=== PATIENT | female | born 1980 | race Caucasian/White ===

== ENCOUNTER → 2017-03-27 | Emergency (ER) | payer MEDICARE | END | disposition left against medical advice (07) | LOC: EDUNIT# 15:20 → ER 15:23 | DX: R42 Dizziness and giddiness (principal); Z53.21 Procedure and treatment not carried out due to patient leaving prior to being seen by health care provider ==

== ENCOUNTER 2018-06-13 17:59 | Emergency (ER) | payer MEDICARE ==
[~2018-06-13] VITALS: Ht 165.1 cm; Wt 76.2 kg
[2018-06-13] MEDS ORDERED: HYDROcodone/APAP 5 MG/325 MG (LORTAB) TAB PO ONE (18:45)
[2018-06-13] MEDS ORDERED: fentaNYL INJECTION 100 MCG/2 ML AMP IVP ONE (18:45)
[2018-06-13] MEDS ORDERED: HYDR-757 PO (18:52)
--- NOTE | 2018-06-13 18:52 | ED Lower Extremity ---
General Chief Complaint: Lower Extremity Stated Complaint: R KNEE PAIN/SWELLING Nursing Triage Note: pT STATES SHE HAS BEEN HAVING DIFFICULTY WITH r LEG FOR THE PAST 6-8 MONTHS. PT STATES KNEE MAKES A GRINDING SOUND. PT STATES SHE COULD NOT EVEN MOVE WHEN SHE WOKE UP THIS AM. PT HAS BEEN ON MILXICAM FOR 3 WEEKS. Nursing Sepsis Screen: No Definite Risk Source: patient Exam Limitations: no limitations History of Present Illness Date Seen by Provider: Jun 13, 2018 Time Seen by Provider: 18:48 Initial Comments To ER per EMS with right knee pain. She has had this problem ongoing for several months. 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 She denies fevers or chills. She denies any recent recurrent injury. She states that her knees have always "grinding". She does not recall any particular injury that caused this. Today, she is unable to fully flex or extend the knee. Onset: other Severity: moderate Pain/Injury Location: right knee Allergies and Home Medications Allergies Uncoded Allergies: STEROIDS (Allergy, Unknown, 09/10/17) Home Medications Hydrocodone/Acetaminophen 1 Each Tablet, 1 EACH PO Q6H PRN for PAIN-MODERATE TO SEVERE Prescribed by: JAMES DIAZ on 06/13/18 1653 Patient Home Medication List Home Medication List Reviewed: Yes Constitutional: see HPI EENTM: see HPI Respiratory: no symptoms reported Cardiovascular: no symptoms reported Genitourinary: no symptoms reported Musculoskeletal: see HPI Skin: no symptoms reported Psychiatric/Neurological: No Symptoms Reported Past Knugqng-Msozxt-Kmnsxl Hx Patient Social History Recent Foreign Travel: No Contact w/Someone Who Travel: No Recent Infectious Disease Expo: No Physical Exam Vital Signs Vital Signs - First Documented 06/13/18 18:39 Temp 96.9 Pulse 80 Resp 14 B/P (MAP) 108/60 (76) Pulse Ox 98 O2 Delivery Room Air Capillary Refill : Less Than 3 Seconds Height, Weight, BMI Height: 5'5.00" Weight: 168lbs. oz. 76.102933gi; BMI Method:Stated General Appearance: WD/WN, no apparent distress HEENT: PERRL/EOMI, normal ENT inspection Neck: non-tender, full range of motion Respiratory: no respiratory distress, no accessory muscle use Gastrointestinal: normal bowel sounds, non tender Hips: bilateral hip non-tender, bilateral hip normal inspection Legs: bilateral leg non-tender, bilateral leg normal inspection Knees: right knee pain, right knee soft tissue tenderness, right knee other ( questionable small joint effusion. No erythema. No obvious deformity.) Ankles: bilateral ankle non-tender, bilateral ankle normal inspection, bilateral ankle normal range of motion Neurologic/Psychiatric: alert, normal mood/affect, oriented x 3 Skin: normal color, warm/dry Progress/Results/Core Measures Results/Orders My Orders Orders - JAMES DIAZ APRN Fentanyl Injection (Sublimaze Injection (06/13/18 18:45) Hydrocodone/Apap 5/325 Tablet (Lortab 5 (06/13/18 18:45) Knee, Right, 3 Views (06/13/18 18:44) Medications Given in ED Current Medications Medications Dose Ordered Sig/Shirley Route Start Time Stop Time Status Last Admin Dose Admin Acetaminophen/ Hydrocodone Bitart 1 tab ONCE ONCE PO 06/13/18 18:45 06/13/18 18:46 DC 06/13/18 19:13 1 TAB Vital Signs/I&O 06/13/18 18:39 Temp 96.9 Pulse 80 Resp 14 B/P (MAP) 108/60 (76) Pulse Ox 98 O2 Delivery Room Air Blood Pressure Mean: 76 Departure Communication (Admissions) NAME: NICOLE PENNINGTON [facility] REC#: [id number] PT STATUS: REG ER : 1980 PHYSICIAN: JAMES DIAZ APRN ADMIT DATE: 06/13/18/ER Draft Date of Exam:06/13/18 KNEE, RIGHT, 3 VIEWS EXAMINATION: Right knee series. INDICATION: Knee pain. No comparison available. FINDINGS: There is some minimal early osteoarthritic joint space loss and osteophyte formation within the medial compartment of the right knee. There also appear to be some very small early inferior patellar osteophytes. There is no acute fracture or suspicion bone lesion. There is no significant knee joint effusion evident. There is no evidence of an acute fracture. IMPRESSION: 1. There appear to be some early mild osteoarthritic changes within the medial and patellofemoral compartments of the right knee. There is no acute fracture, malalignment, significant joint effusion, or suspicious bone lesion. Dictated on workstation # [id number] Dict: 06/13/181922 Trans: 06/13/181928 [id number] Interpreted by: ALBERTO GAONA MD Electronically signed by: Impression Primary Impression: Osteoarthritis of knee Disposition: HOME, SELF-CARE Condition: Stable Departure-Patient Inst. Decision time for Depature: 18:50 Referrals: [facility]/BRENDA (PCP) Primary Care Physician AMBER ESPINOSA (Family) Primary Care Physician Patient Instructions: Arthritis and Exercise Add. Discharge Instructions: 1. Follow-up with orthopedic surgeon of your choosing. The next step will likely be an MRI of the knee. All discharge instructions reviewed with patient and/or family. Voiced understanding. Scripts Hydrocodone/Acetaminophen (Independence 5-325 Tablet) 1 Each Tablet 1 EACH PO Q6H PRN for PAIN-MODERATE TO SEVERE, #10 TAB Prov: JAMES DIAZ APRN 06/13/18 Work/School Note: Work Release Form Date Seen in the Emergency Department: Jun 13, 2018 Return to Work: Jun 15, 2018 JAMES DIAZ APRN Jun 13, 2018 18:52
--- NOTE | 2018-06-13 19:29 | Diagnostic Imaging Report ---
EXAMINATION: Right knee series. INDICATION: Knee pain. No comparison available. FINDINGS: There is some minimal early osteoarthritic joint space loss and osteophyte formation within the medial compartment of the right knee. There also appear to be some very small early inferior patellar osteophytes. There is no acute fracture or suspicion bone lesion. There is no significant knee joint effusion evident. There is no evidence of an acute fracture. IMPRESSION: 1. There appear to be some early mild osteoarthritic changes within the medial and patellofemoral compartments of the right knee. There is no acute fracture, malalignment, significant joint effusion, or suspicious bone lesion. Dictated by: Dictated on workstation # [id number]
[2018-06-13 20:07] VITALS: BP 119/82
== END 2018-06-13 20:07 | disposition home or self-care (01) ==
LOC: EDUNIT# 17:59 → ER 18:01
DX: M17.11 Unilateral primary osteoarthritis, right knee (principal); Z88.8 Allergy status to other drugs, medicaments and biological substances
CPT/HCPCS: 73562

== ENCOUNTER → 2018-06-22 | Outpatient (CLI) | payer MEDICARE, MEDICAID ==
[~2018-06-22] MED LIST: HYDR-757 PO
--- NOTE | 2018-06-22 08:28 | Diagnostic Imaging Report ---
PROCEDURE: MRI right joint lower extremity without contrast. TECHNIQUE: Multiplanar, multisequence non contrast-enhanced MRI of the right lower extremity was accomplished. INDICATION: Right knee pain for one month with no known injury. COMPARISON: Radiographs from 06/13/2018 FINDINGS: No acute fracture or dislocation is seen in the right knee. Alignment appears normal. There is no significant joint effusion. There is heterogeneity and surface irregularity of the patellofemoral articular cartilage, with a high-grade partial thickness defect of the articular cartilage overlying the median ridge and medial facet, measuring 1 cm transverse. The articular cartilage in the medial and lateral compartments demonstrates no large full-thickness defects. There appears to be an oblique tear extending to the inferior articular surface of the junction of the posterior horn and body of the medial meniscus (image 6 series 6). No discrete tear seen of the lateral meniscus, although there is mildly increased signal. The anterior and posterior cruciate ligaments are intact. The medial collateral ligament and the lateral collateral ligamentous complex are intact. The extensor mechanism is intact. The medial and lateral retinacula appear normal. Soft tissues surrounding the right knee demonstrate a small Noel's cyst with no other fluid collections or masses. IMPRESSION: 1. Oblique tear at the junction of the posterior horn and body of the right medial meniscus. 2. High-grade partial-thickness defect of the articular cartilage of the patella. 3. Small Noel's cyst. Dictated by: Dictated on workstation # [id number]
== END ==
LOC: RAD 06:56
PROVIDERS: ATTEND Nurse Practitioner
DX: S83.281A Other tear of lateral meniscus, current injury, right knee, initial encounter (principal); M22.8X1 Other disorders of patella, right knee; M71.21 Synovial cyst of popliteal space [Baker], right knee
CPT/HCPCS: 73721

== ENCOUNTER 2018-12-09 20:49 | Emergency (ER) | payer MEDICAID, MEDICARE ==
[~2018-12-09] VITALS: Ht 165.1 cm; Wt 77.1 kg
[~2018-12-09 20:49] MED LIST changes: +HYDR-4226 PO; -HYDR-757 PO
[2018-12-09 21:02] LABS: BASOPHILS % (AUTO) 0 % (0-10); EOSINOPHILS # (AUTO) 0.6 10^3/uL (0.0-0.3); EOSINOPHILS % (AUTO) 4 % (0-10); HEMATOCRIT 41 % (35-52); HEMOGLOBIN 14.1 G/DL (11.5-16.0); LYMPHOCYTES # (AUTO) 4.3 X 10^3 (1.0-4.0); LYMPHOCYTES % (AUTO) 26 % (12-44); MEAN CORPUSCULAR HEMOGLOBIN 31 PG (25-34); MEAN CORPUSCULAR HGB CONC 35 G/DL (32-36); MEAN CORPUSCULAR VOLUME 89 FL (80-99); MEAN PLATELET VOLUME 9.5 FL (7.4-10.4); MONOCYTES # (AUTO) 1.1 X 10^3 (0.0-1.0); MONOCYTES % (AUTO) 7 % (0-12); NEUTROPHILS # (AUTO) 10.5 X 10^3 (1.8-7.8); NEUTROPHILS % (AUTO) 64 % (42-75); PLATELET COUNT 289 10^3/uL (130-400); RED CELL DISTRIBUTION WIDTH 13.2 % (10.0-14.5); WHITE BLOOD COUNT 16.5 10^3/uL (4.3-11.0)
[2018-12-09 21:20] LABS: ALANINE AMINOTRANSFERASE 25 U/L (0-55); ALBUMIN 4.4 GM/DL (3.2-4.5); ALKALINE PHOSPHATASE 64 U/L (40-136); AMYLASE 68 U/L (25-125); BILIRUBIN,TOTAL 0.3 MG/DL (0.1-1.0); BUN/CREATININE RATIO 9; CALCIUM 9.5 MG/DL (8.5-10.1); CARBON DIOXIDE 24 MMOL/L (21-32); CHLORIDE 103 MMOL/L (98-107); CREATININE SERUM 1.36 MG/DL (0.60-1.30); GFR ESTIMATED 44; GLUCOSE 97 MG/DL (70-105); LIPASE 36 U/L (8-78); MAGNESIUM 2.2 MG/DL (1.8-2.4); POTASSIUM 3.7 MMOL/L (3.6-5.0); SODIUM 138 MMOL/L (135-145)
[2018-12-09 21:21] LABS: BAND NEUTROPHILS 0 %; BASOPHILS % (MANUAL) 0 %; EOSINOPHILS % (MANUAL) 3 %; LYMPHOCYTES % (MANUAL) 43 %; MONOCYTES % (MANUAL) 4 %; NEUTROPHILS % (MANUAL) 50 %; RBC MORPH NORMAL
[2018-12-09 21:28] LABS: MYOGLOBIN SERUM 31.3 NG/ML (10.0-92.0)
--- NOTE | 2018-12-09 21:52 | Diagnostic Imaging Report ---
INDICATION: Chest pain EXAMINATION: Chest 12/09/2018 COMPARISON: None FINDINGS: The cardiomediastinal silhouette is unremarkable. The pulmonary vasculature is within normal limits. The lungs and pleural spaces are clear. IMPRESSION: No evidence of an acute cardiopulmonary process. Dictated by: Dictated on workstation # [id number]
--- NOTE | 2018-12-09 22:09 | ED Chest Pain ---
General Chief Complaint: Chest Pain Stated Complaint: CP Nursing Triage Note: Pt has had chest pain for about 2 days. Today the neck, jaw pain and chest pressure started around [id number]. She stated the pain radiates to left arm/back. Pt has past medical history of anxiety, so pt took xanax and lexapro. Pt called EMS and EMS brought pt in. They attempted IV and could not get one. EMS gave pt aspirin. Pt was alert and oriented at arrival. Pt stated at arrival , pt was not in any pain. Nursing Sepsis Screen: No Definite Risk Source: patient Exam Limitations: no limitations History of Present Illness Date Seen by Provider: Dec 09, 2018 Time Seen by Provider: 20:53 Initial Comments 38-year-old female who is brought into the emergency room by [facility] for chest pain for 2 days. She reports of the chest pain has been starting in her chest and radiating to her left side of her neck, left jaw and shooting down her left arm. She is alert and oriented on arrival to the emergency room. She denies shortness of breath, nausea, vomiting, lightheadedness, diarrhea. She does have an extensive history of anxiety and did take those medications without improvement. EMS gave 324 mg of chewable aspirin. She is denying chest pain on arrival to the emergency room. Timing/Duration: gone now, 2-3 days Severity/Quality: mild, dull, pressure Radiation: neck ASA po FLIGHT TOWER DISPATCHER: Yes NTG SL FLIGHT TOWER DISPATCHER: No Associated Symptoms: denies symptoms Allergies and Home Medications Allergies Uncoded Allergies: STEROIDS (Allergy, Unknown, 09/10/17) Home Medications Hydrocodone/Acetaminophen 1 Each Tablet, 1 EACH PO Q6H PRN for PAIN-MODERATE TO SEVERE Prescribed by: JAMES DIAZ on 06/13/18 0112 Patient Home Medication List Home Medication List Reviewed: Yes Review of Systems Review of Systems Constitutional: no symptoms reported, see HPI Cardiovascular: See HPI, Chest Pain Psychiatric/Neurological: See HPI, Anxiety All Other Systems Reviewed Negative Unless Noted: Yes Past Cyatpew-Ihlgjs-Ukhfda Hx Past Med/Social Hx: Reviewed Nursing Past Med/Soc Hx Patient Social History Alcohol Use: Denies Use Recreational Drug Use: No Smoking Status: Current Everyday Smoker Type Used: Cigarettes Recent Foreign Travel: No Contact w/Someone Who Travel: No Recent Infectious Disease Expo: No Recent Hopitalizations: No Physical Abuse: No Sexual Abuse: No Mistreated: No Fear: No Seasonal Allergies Seasonal Allergies: No Past Medical History Surgeries: Yes (rt shoulder, right knee) Section Respiratory: No Cardiac: No Neurological: Yes Neuropathy Genitourinary: No Gastrointestinal: No Musculoskeletal: No Endocrine: No HEENT: No Cancer: No Psychosocial: Yes Anxiety Integumentary: No Blood Disorders: No Adverse Reaction/Blood Tranf: No Family Medical History Reviewed Nursing Family Hx Physical Exam Vital Signs Vital Signs - First Documented Capillary Refill : Less Than 3 Seconds Height, Weight, BMI Height: 5'5.00" Weight: 170lbs. 0oz. 77.693747xv; BMI Method:Stated General Appearance: No Apparent Distress, WD/WN HEENT: PERRL/EOMI, TMs Normal, Normal ENT Inspection, Pharynx Normal Neck: Full Range of Motion, Normal Inspection, Non Tender Respiratory: Chest Non Tender, Lungs Clear, Normal Breath Sounds, No Accessory Muscle Use, No Respiratory Distress Cardiovascular: Regular Rate, Rhythm, No Edema, No Gallop, No JVD, No Murmur, Normal Peripheral Pulses Extremity: Normal Capillary Refill, Normal Inspection, Normal Range of Motion, Non Tender, No Calf Tenderness, No Pedal Edema Neurologic/Psychiatric: Alert, Oriented x3, Normal Mood/Affect Skin: Normal Color, Warm/Dry Progress/Results/Core Measures Results/Orders Lab Results Laboratory Tests Test 12/09/18 20:52 12/09/18 22:01 Range/Units White Blood Count 16.5 H 4.3-11.0 10^3/uL Red Blood Count 4.58 4.35-5.85 10^6/uL Hemoglobin 14.1 11.5-16.0 G/DL Hematocrit 41 35-52 % Mean Corpuscular Volume 89 80-99 FL Mean Corpuscular Hemoglobin 31 25-34 PG Mean Corpuscular Hemoglobin Concent 35 32-36 G/DL Red Cell Distribution Width 13.2 10.0-14.5 % Platelet Count 289 130-400 10^3/uL Mean Platelet Volume 9.5 7.4-10.4 FL Neutrophils (%) (Auto) 64 42-75 % Lymphocytes (%) (Auto) 26 12-44 % Monocytes (%) (Auto) 7 0-12 % Eosinophils (%) (Auto) 4 0-10 % Basophils (%) (Auto) 0 0-10 % Neutrophils # (Auto) 10.5 H 1.8-7.8 X 10^3 Lymphocytes # (Auto) 4.3 H 1.0-4.0 X 10^3 Monocytes # (Auto) 1.1 H 0.0-1.0 X 10^3 Eosinophils # (Auto) 0.6 H 0.0-0.3 10^3/uL Basophils # (Auto) 0.0 0.0-0.1 10^3/uL Neutrophils % (Manual) 50 % Lymphocytes % (Manual) 43 % Monocytes % (Manual) 4 % Eosinophils % (Manual) 3 % Basophils % (Manual) 0 % Band Neutrophils 0 % Blood Morphology Comment NORMAL Prothrombin Time 13.0 12.2-14.7 SEC INR Comment 1.0 0.8-1.4 Activated Partial Thromboplast Time 34 24-35 SEC D-Dimer 0.20 0.00-0.49 UG/ML Sodium Level 138 135-145 MMOL/L Potassium Level 3.7 3.6-5.0 MMOL/L Chloride Level 103 98-107 MMOL/L Carbon Dioxide Level 24 21-32 MMOL/L Anion Gap 11 5-14 MMOL/L Blood Urea Nitrogen 12 7-18 MG/DL Creatinine 1.36 H 0.60-1.30 MG/DL Estimat Glomerular Filtration Rate 44 BUN/Creatinine Ratio 9 Glucose Level 97 70-105 MG/DL Calcium Level 9.5 8.5-10.1 MG/DL Corrected Calcium 9.2 8.5-10.1 MG/DL Magnesium Level 2.2 1.8-2.4 MG/DL Total Bilirubin 0.3 0.1-1.0 MG/DL Aspartate Amino Transf (AST/SGOT) 19 5-34 U/L Alanine Aminotransferase (ALT/SGPT) 25 0-55 U/L Alkaline Phosphatase 64 40-136 U/L Myoglobin 31.3 10.0-92.0 NG/ML Troponin I < 0.028 <0.028 NG/ML Total Protein 8.0 6.4-8.2 GM/DL Albumin 4.4 3.2-4.5 GM/DL Amylase Level 68 25-125 U/L Lipase 36 8-78 U/L Urine Color YELLOW Urine Clarity CLEAR Urine pH 6 5-9 Urine Specific [place] 1.015 L 1.016-1.022 Urine Protein NEGATIVE NEGATIVE Urine Glucose (UA) NEGATIVE NEGATIVE Urine Ketones NEGATIVE NEGATIVE Urine Nitrite NEGATIVE NEGATIVE Urine Bilirubin NEGATIVE NEGATIVE Urine Urobilinogen NORMAL NORMAL MG/DL Urine Leukocyte Esterase NEGATIVE NEGATIVE Urine RBC (Auto) 1+ H NEGATIVE Urine RBC 2-5 H /HPF Urine WBC NONE /HPF Urine Squamous Epithelial Cells 5-10 /HPF Urine Crystals NONE /LPF Urine Bacteria NONE /HPF Urine Casts NONE /LPF Urine Mucus NEGATIVE /LPF Urine Culture Indicated NO My Orders Orders - CAMACHO VILLAGOMEZ Cbc With Automated Diff (12/09/18 20:53) Magnesium (12/09/18 20:53) Chest 1 View, Ap/Pa Only (12/09/18 20:53) Ekg Tracing (12/09/18 20:53) Cardiac Profile 1 (12/09/18 20:53) Comprehensive Metabolic Panel (12/09/18 20:53) Myoglobin Serum (12/09/18 20:53) Protime With Inr (12/09/18 20:53) Partial Thromboplastin Time (12/09/18 20:53) O2 (12/09/18 20:53) Monitor-Rhythm Ecg Trace Only (12/09/18 20:53) Saline Lock/Iv-Start (12/09/18 20:53) Lipase (12/09/18 20:53) Amylase (12/09/18 20:53) Fibrin Degradation Products (12/09/18 20:53) Manual Differential (12/09/18 20:52) Ua Culture If Indicated (12/09/18 22:02) Vital Signs/I&O 12/09/18 12/09/18 12/09/18 20:51 20:51 22:32 Temp 97.2 95.9 Pulse 76 70 Resp 34 18 B/P (MAP) 114/75 (88) 97/48 (64) Pulse Ox 100 97 O2 Delivery Room Air Room Air Room Air Blood Pressure Mean: 88 Progress Progress Note : Time: 20:07 Progress Note I have seen and evaluated the patient. She still remains pain-free at this time. I have reviewed her laboratory and imaging studies with her. I have also asked her to stay for a repeat troponin in 2 hours and she has declined at this time. I informed her that she will be signing out AGAINST MEDICAL ADVICE and she agrees to do this. I've informed her of plan of care, plans for discharge, return precautions were given. Initial ECG Impression Date: Dec 09, 2018 Initial ECG Impression Time: 20:51 Initial ECG Rate: 74 Initial ECG Rhythm: Normal Sinus Initial ECG Intervals: Normal Initial ECG Impression: Normal Initial ECG Comparisson: No Previous ECG Available Diagnostic Imaging Diagonstic Imaging: Xray Plain Films/CT/US/NM/MRI: chest Comments NAME: NICOLE PENNINGTON [facility] REC#: [id number] PT STATUS: REG ER : 1980 PHYSICIAN: CAMACHO VILLAGOMEZ ADMIT DATE: 12/09/18/ER Signed Date of Exam: 12/09/18 CHEST 1 VIEW, AP/PA ONLY INDICATION: Chest pain EXAMINATION: Chest 12/09/2018 COMPARISON: None FINDINGS: The cardiomediastinal silhouette is unremarkable. The pulmonary vasculature is within normal limits. The lungs and pleural spaces are clear. IMPRESSION: No evidence of an acute cardiopulmonary process. Dictated by: Dictated on workstation # [id number] Dict: 12/09/18 2148 Trans: 12/09/182225 Interpreted by: OPAL CURRIE MD Electronically signed by: OPAL CURRIE MD 12/09/182225 Reviewed: Reviewed by Me Departure Impression Primary Impression: Chest pain Additional Impressions: Left against medical advice Anxiety Disposition: 01 HOME, SELF-CARE Condition: Stable/Unchanged Departure-Patient Inst. Decision time for Depature: 22:07 Referrals: AMBER ESPINOSA (PCP/Family) Primary Care Physician Patient Instructions: Anxiety, Adult (DC), Chest Pain (DC) Add. Discharge Instructions: Resume your home medications as previously prescribed. Follow-up with your primary care provider within 1 week for recheck. Return back to the emergency room for worsening symptoms or concerns as needed. All discharge instructions reviewed with patient and/or family. Voiced understanding. CAMACHO VILLAGOMEZ Dec 09, 2018 22:09
[2018-12-09 22:12] LABS: BILIRUBIN,URINE NEGATIVE (NEGATIVE); CLARITY,URINE CLEAR; COLOR,URINE YELLOW; GLUCOSE, URINE (UA) NEGATIVE (NEGATIVE); KETONES,URINE NEGATIVE (NEGATIVE); LEUKOCYTE ESTERASE ,URINE NEGATIVE (NEGATIVE); NITRITE,URINE NEGATIVE (NEGATIVE); PH,URINE 6 (5-9); PROTEIN,URINE NEGATIVE (NEGATIVE); UROBILINOGEN,URINE NORMAL (NORMAL)
[2018-12-09 22:32] VITALS: BP 97/48
--- NOTE | 2018-12-09 22:32 | NUR ---
Pt did not want to wait on two hour troponin and wanted to go home. Pt signed AMA, received dc inst, vital signs were taken and IV removed. Pt left at this time.
== END 2018-12-09 22:31 | disposition home or self-care (01) ==
LOC: EDUNIT# 20:49 → ER 20:50
DX: R07.89 Other chest pain (principal); F41.9 Anxiety disorder, unspecified; F17.210 Nicotine dependence, cigarettes, uncomplicated; Z88.8 Allergy status to other drugs, medicaments and biological substances; Z98.890 Other specified postprocedural states
CPT/HCPCS: 36415; 71045; 80053; 81000; 82150; 83690; 83735; 83874; 84484; 85007; 85027; 85379; 85610; 85730; 93041

== ENCOUNTER 2019-03-20 12:31 | Outpatient (CLI) | payer MEDICARE ==
[~2019-03-20] VITALS: Ht 165.1 cm; Wt 83.5 kg
[2019-03-20 12:39] VITALS: BP 105/59
[2019-03-20] MEDS ORDERED: IBUP-1780 PO (12:43)
[2019-03-20] MEDS ORDERED: ALPR1TAB7 PO (12:43)
[2019-03-20] MEDS ORDERED: ESCI10TA PO (12:43)
[2019-03-20 13:06] LABS: BASOPHILS % (AUTO) 0 % (0-10); EOSINOPHILS # (AUTO) 0.4 10^3/uL (0.0-0.3); EOSINOPHILS % (AUTO) 3 % (0-10); HEMATOCRIT 37 % (35-52); HEMOGLOBIN 12.6 G/DL (11.5-16.0); LYMPHOCYTES # (AUTO) 3.5 X 10^3 (1.0-4.0); LYMPHOCYTES % (AUTO) 27 % (12-44); MEAN CORPUSCULAR HEMOGLOBIN 30 PG (25-34); MEAN CORPUSCULAR HGB CONC 34 G/DL (32-36); MEAN CORPUSCULAR VOLUME 88 FL (80-99); MEAN PLATELET VOLUME 9.9 FL (7.4-10.4); MONOCYTES # (AUTO) 0.7 X 10^3 (0.0-1.0); MONOCYTES % (AUTO) 5 % (0-12); NEUTROPHILS # (AUTO) 8.6 X 10^3 (1.8-7.8); NEUTROPHILS % (AUTO) 65 % (42-75); PLATELET COUNT 274 10^3/uL (130-400); RED CELL DISTRIBUTION WIDTH 13.4 % (10.0-14.5); WHITE BLOOD COUNT 13.2 10^3/uL (4.3-11.0)
[2019-03-20] MEDS ORDERED: ESCI20TA45 PO (13:17)
[2019-03-20] MEDS ORDERED: MEFE250C19 PO (13:17)
== END 2019-03-20 12:55 | disposition home or self-care (01) ==
LOC: PREOP 12:31
PROVIDERS: ATTEND Obstetrics & Gynecology
DX: Z01.812 Encounter for preprocedural laboratory examination (principal); Z11.2 Encounter for screening for other bacterial diseases; R10.2 Pelvic and perineal pain; Z72.0 Tobacco use
CPT/HCPCS: 36415; 85025; 86850; 86900; 86901; 87081

== ENCOUNTER 2019-03-27 10:20 | Inpatient (IN) | payer MEDICARE ==
[2019-03-27] VITALS (12 sets, daily range): BP systolic 83–110; BP diastolic 44–68
[~2019-03-27] VITALS: Ht 165.1 cm; Wt 83.5 kg
[~2019-03-27 10:20] MED LIST changes: +ALPR1TAB7 PO; +ESCI10TA PO; +ESCI20TA45 PO; +IBUP-1780 PO; +MEFE250C19 PO
[2019-03-27] MEDS ORDERED: proPOfol 200 MG/20 ML (DIPRIVAN) VIAL IV ONE (10:35)
[2019-03-27] MEDS ORDERED: SEVOFLURANE (ULTANE) 15 ML INHAL SOLN ONE ×5 (10:35→12:58)
[2019-03-27] MEDS ORDERED: fentaNYL INJECTION 100 MCG/2 ML AMP ONE (10:35)
[2019-03-27] MEDS ORDERED: ROCURONIUM 10 MG/ML 5 ML SYRINGE IV ONE (10:35)
[2019-03-27] MEDS ORDERED: LIDOCAINE PF 2% 5 ML (XYLOCAINE) VIAL ONE (10:35)
[2019-03-27] MEDS ORDERED: MIDAZOLAM 2 MG/2 ML (VERSED) VIAL ONE (10:36)
[2019-03-27] MEDS ORDERED: DEXAMETHASONE 10 MG/ML (DECADRON) 1 ML VIAL ONE (10:41)
[2019-03-27] MEDS ORDERED: ONDANSETRON 4 MG/2 ML (SDV) Z0FRAN ONE (10:41)
[2019-03-27] MEDS: LACTATED RINGERS 1,000 ML IV PRN ×2 (10:50→14:00)
[2019-03-27] MEDS ORDERED: ceFAZolin 2 GM/50 ML NS 50 ML IV ONE (11:00)
[2019-03-27] MEDS ORDERED: metroNIDAZOLE 500MG/100ML IVPB 100 ML IV ONE (11:00)
[2019-03-27] MEDS ORDERED: BUPIVACAINE 0.5% 30 ML (SENSORCAINE) VIAL ONE (11:05)
[2019-03-27] MEDS ORDERED: MIDAZOLAM 2 MG/2 ML (VERSED) VIAL IV ONE (11:30)
[2019-03-27] MEDS ORDERED: GLYCOPYRROLATE 0.2 MG/ML (ROBINUL) 2 ML VIAL ONE (13:03)
[2019-03-27] MEDS ORDERED: NEOSTIGMINE 1 MG/ML 5 ML SYRINGE ONE (13:03)
--- NOTE | 2019-03-27 13:12 | History & Physical-OB/GYN ---
History of Present Illness History of Present Illness Reason for visit/HPI Ms. Wolf was admitted for scheduled surgery, Total Abdominal Hysterectomy with Bilateral Salpingo-oophorectomy secondary to severe pelvic pain after having an Endometrial Ablation. Date of Admission March 27, 2019 at 10:20 Date Seen by a Provider: March 27, 2019 Time Seen by a Provider: 11:30 I consulted on this patient on 03/27/19 13:06 Attending Physician Ian Wong DO Admitting Physician Ian Wong DO Consult Allergies and Home Medications Allergies Uncoded Allergies: STEROIDS (Allergy, Unknown, 09/10/17) Home Medications Alprazolam 1 Mg Tablet, 1.5 MG PO HS, (Reported) take 1 1/2 of 1mg tab for 1.5mg total, prescribed TID prn but pt takes 1.5 tab at hs Escitalopram Oxalate 20 Mg Tablet, 20 MG PO HS, (Reported) Ibuprofen 800 Mg Tablet, 800 MG PO TID PRN for PAIN-MILD, (Reported) Patient Home Medication List Home Medication List Reviewed: Yes Past [place]-Eldpoz-Gianxo Hx Patient Social History Marrital Status: single Number of Children: 1 Number of living children: 1 Employed/Student: employed Alcohol Use: Occasionally Uses Recreational Drug Use: No Cigaretts per day: 21 Former Smoker, Quit: March 27, 2019 Type Used: Cigarettes Physical Abuse Screen: No Sexual Abuse: No Recent Foreign Travel: No Contact w/other who traveled: No Recent Hopitalizations: No Recent Infectious Disease Expo: No Seasonal Allergies Seasonal Allergies: Yes Surgeries Yes (rt shoulder, right knee, uterine ablation) Section Respiratory No Cardiovascular No Neurological Yes Neuropathy Reproductive System : No Genitourinary No Gastrointestinal No Musculoskeletal No Endocrine History of Endocrine Disorders: No HEENT History of HEENT Disorders: No Cancer No Psychosocial History of Psychiatric Problem: Yes Behavioral Health Disorders: Anxiety Integumentary History of Skin or Integumenta: No Blood Transfusions History of Blood Disorders: No Adverse Reaction to a Blood Tr: No Family Medical History Family Hx: Cervical cancer 19 MOTHER Review of Systems Constitutional: see HPI Genitourinary: other (Chronic Pelvic Pain after having an Endometrial Ablation) Physical Exam Physical Exam Vital Signs Vital Signs Date Time Temp Pulse Resp B/P (MAP) Pulse Ox O2 Delivery O2 Flow Rate FiO2 03/27/19 12:45 Room Air 5/20/19 11:18 97.3 79 18 103/61 97 Room Air Capillary Refill : General Appearance: No Apparent Distress, WD/WN Respiratory: Lungs Clear, Normal Breath Sounds Cardiovascular: Regular Rate, Rhythm, No Murmur Abdominal: normal bowel sounds, tenderness Assessment/Plan Assessment and Plan Chronic Pelvic Pain 2. S/P Endometrial Ablation Admission Diagnosis Chronic Pelvic Pain 2. S/P Endometrial Ablation Admission Status: Inpatient Order (span 2 midnights) Reason for Inpatient Admission: Scheduled surgery, Total Abdominal Hysterectomy with Bilateral Salpingo-oophorectomy IAN WONG DO March 27, 2019 13:12
[2019-03-27] MEDS ORDERED: morphine INJ 10 MG/ML 1ML (SYR OR VIAL) ONE (13:20)
[2019-03-27] MEDS ORDERED: PROMETHAZINE INJ 25 MG/ML (PHENERGAN) AMP ONE (13:28)
--- NOTE | 2019-03-27 13:30 | Operative Report ---
Operative Report Date of Procedure/Surgery March 27, 2019 Surgeon (s) OLIVIA CURRIE DO Battery Container Finishing Hand (s): None Post-Operative Diagnosis Chronic Pelvic Pain S/P Endometrial Ablation Procedure Performed Total Abdominal Hysterectomy with Bilateral Salpingo-oophorectomy Description of Procedure Anesthesia Type: General Estimated blood loss (mL): 200 ml Specimen(s) collected/removed Uterus, Fallopian Tubes, Ovaries Description of the Procedure Ms. Wolf was taken to the Operating Room with IV fluids running. Once in the OR, general anesthesia was administered without difficulty. A Doherty Catheter was placed. In the supine position she was prepped and draped in the normal sterile fashion. An elliptical incision was over her previous skin incision and the old incision was removed and sent to pathology. The incision was then carried down to the underlying layer of the fascia. The fascia was nicked in the midline and extended laterally. The fascia was then elevated and the rectus muscle was dissected off sharply. The rectus muscle was in the midline. The parietal peritoneum was identified, entered sharply and extended superiorly and inferiorly with good visualization of the bladder. At this point, the bowel was packed away with moist laparotomy sponges. An O'Mo- O'Hitchcock self-retaining retractor was placed. The round ligament on both sides were transected and suture ligated with 0-Vicryl. The vesicouterine peritoneum was bluntly and sharply dissected off the lower uterine segment. The infundibulopelvic ligament from both sides was clamped, transected and suture ligated with 0-Vicryl. A second suture of 0-Vicryl was placed on the the infundibulopelvic ligament. The remaining broad ligament was serially clamped, transected and suture ligated with 0-Vicryl. The uterosacral ligament on both sides was clamped and suture ligated with 0-Vicryl (the needle on both sides was allowed to remain as a means to close and elevated the vaginal cuff. Utilizing the curved scissors, the uterus, fallopian tubes and ovaries were freed from the confines the vaginal vault and sent to pathology. The vaginal cuff was closed with 0-Vicryl that was attached to the uterosacral ligament. Hemostasis was noted throughout the pelvic cavity. All sponges and instruments were removed from the pelvic cavity. The peritoneum was closed with 3-0 Vicryl in a running fashion. The fascia was closed with 0-Vicryl in a running fashion. The subcutaneous tissue was approximated with 3-0 Plain Gut. The skin was closed in a subcuticular manner with 4-0 Vicryl with excellent cheondoism of the skin planes. Sponge, instruments, and needle counts were correct x 3. Ms. Wolf was taken to the recovery room in good and stable condition. Findings of the Procedure Very small uterus with some adhesions involving the uterus. Allergies and Home Medications Allergies Uncoded Allergies: STEROIDS (Allergy, Unknown, 09/10/17) Home Medications Alprazolam 1 Mg Tablet, 1.5 MG PO HS, (Reported) take 1 1/2 of 1mg tab for 1.5mg total, prescribed TID prn but pt takes 1.5 tab at hs Escitalopram Oxalate 20 Mg Tablet, 20 MG PO HS, (Reported) Ibuprofen 800 Mg Tablet, 800 MG PO TID PRN for PAIN-MILD, (Reported) Patient Home Medication List Home Medication List Reviewed: Yes OLIVIA CURRIE DO March 27, 2019 13:30
[2019-03-27] MEDS ORDERED: HYDROmorphone 2 MG/ML VIAL (DILAUDID) ONE (13:37)
[2019-03-27] MEDS ORDERED: KETOROLAC 30 MG/ML VIAL ONE (13:44)
[2019-03-27] MEDS ORDERED: HYDROmorphone 2 MG/ML VIAL (DILAUDID) IV ONE (13:45)
[2019-03-27] MEDS ORDERED: oxyCODONE/APAP 5/325MG (PERCOCET 5) TABLET PO PRN (13:45)
[2019-03-27] MEDS ORDERED: ONDANSETRON 4 MG/2 ML (SDV) Z0FRAN IVP PRN ×2 (13:45)
[2019-03-27] MEDS ORDERED: fentaNYL INJECTION 100 MCG/2 ML AMP IVP PRN (13:45)
[2019-03-27] MEDS ORDERED: PROMETHAZINE INJ 25 MG/ML (PHENERGAN) AMP IVP ONE (13:45)
[2019-03-27] MEDS ORDERED: morphine INJ 10 MG/ML 1ML (SYR OR VIAL) IVP ONE (13:45)
[2019-03-27] MEDS ORDERED: ACETAMINOPHEN 500 MG TAB (TYLENOL) PO PRN (13:45)
[2019-03-27] MEDS ORDERED: MEPERIDINE (DEMEROL) INJ 50 MG/ML IVP ONE (13:45)
[2019-03-27] MEDS: KETOROLAC 30 MG/ML VIAL IVP SCH ×2 (13:49→20:06)
[2019-03-27] MEDS ORDERED: MEPERIDINE (DEMEROL) INJ 50 MG/ML ONE (14:05)
--- NOTE | 2019-03-27 14:35 | NUR ---
REPORT RECEIVED FROM ELINOR ALBARRAN. PT TO ROOM 3305 FROM PACU, ALERT, NO DISTRESS NOTED.
--- NOTE | 2019-03-27 14:45 | NUR ---
INITIAL ASSESSMENT COMPLETED, VSS, SEE INTERVENTIONS.
--- NOTE | 2019-03-27 15:40 | NUR ---
DR CURRIE HERE NEW ORDERS RECEIVED.
[2019-03-27] MEDS ORDERED: LORazepam INJ 2 MG/ML (ATIVAN) VIAL IVP PRN (16:00)
[2019-03-27] MEDS ORDERED: ZOLPIDEM 5 MG (AMBIEN) TAB PO PRN (16:00)
--- NOTE | 2019-03-27 16:15 | NUR ---
PT TO MASOOD RN AT SIDE.
[2019-03-27] MEDS ORDERED: D5 LR IV SOLUTION 1,000 ML IV ONE (16:21)
[2019-03-27] MEDS: D5 LR IV SOLUTION 1,000 ML IV SCH ×2 (16:30→23:53)
--- NOTE | 2019-03-27 16:30 | NUR ---
IV FLUIDS UP.
--- NOTE | 2019-03-27 17:10 | NUR ---
PT BACK TO ROOM, NO C/O NOTED.
[2019-03-28] MEDS: KETOROLAC 30 MG/ML VIAL IVP SCH ×2 (01:59→08:33)
[2019-03-28 04:45] VITALS: BP 90/48
[2019-03-28] MEDS ORDERED: BISACODYL 10 MG SUPP (DULCOLAX) PR NR (05:00)
[2019-03-28] MEDS ORDERED: MILK OF MAGNESIA 400 MG/5 ML 30 ML UDC PO NR (05:00)
[2019-03-28] MEDS ORDERED: DOCUSATE SODIUM 100 MG (COLACE) CAP PO SCH (09:00)
--- NOTE | 2019-03-28 09:00 | NUR ---
IVF discontinued. Saline lock remains in place. Patient up to ambulate in halls. Distance = 500 feet. Tolerated well.
--- NOTE | 2019-03-28 09:03 | Progress Note-Standard ---
Standard Progress Note Progress Notes/Assess & Plan Date Seen by a Provider: March 28, 2019 Time Seen by a Provider: 07:30 Progress/Assessment & Plan Subjective: Ms. Wolf is Postoperative Day #1 from a MUNIRA/BSO. She admits to having more soreness on her right side than her left, but otherwise she is doing well. Denies having a bowel movement yet. Has been up to void, once. Objective: Vital signs stable Heart: Regular rate and rhythm without appreciable murmur Lungs: Clear to auscultation with normal breath sounds Abdomen: Good bowel sounds, moderate tenderness on right, incision is clean, dry and intact Extremities: No cyanosis, clubbing or edema Assessment: Postoperative Day #1 MUNIRA/BSO Plan: Increase bowel function, then advance diet. Start oral pain medication. Ambulate. Shower. Possible discharge later today, most likely tomorrow Final Diagnosis Chronic Pelvic Pain S/P Endometrial Ablation Pelvic Adhesions OLIVIA CURRIE DO March 28, 2019 09:03
[2019-03-28] MEDS ORDERED: DOCU100C37 PO (09:06)
[2019-03-28] MEDS ORDERED: IBUP-1780 PO (09:06)
[2019-03-28] MEDS ORDERED: OXYC1TAB87 PO (09:06)
--- NOTE | 2019-03-28 11:21 | Anesthesia-General Post-Op ---
General Patient Condition Mental Status/LOC: Same as Preop Cardiovascular: Satisfactory Nausea/Vomiting: Absent Respiratory: Satisfactory Pain: Controlled Complications: Absent Post Op Complications Complications None Follow Up Care/Instructions Patient Instructions None needed. Anesthesia/Patient Condition Patient Condition Patient is doing well, no complaints, stable vital signs, no apparent adverse anesthesia problems. No complications reported per nursing. BARBARA NATH CRNA March 28, 2019 11:21
[2019-03-28 11:55] VITALS: BP 105/65
[2019-03-28] MEDS ORDERED: IBUPROFEN 800 MG (MOTRIN) TAB PO SCH (13:45)
--- NOTE | 2019-03-29 07:32 | Discharge Summary ---
Diagnosis/Chief Complaint Date of Admission March 27, 2019 at 10:20 Date of Discharge March 28, 2019 at 13:50 Discharge Date: March 28, 2019 Discharge Time: 13:50 Admission Diagnosis Admission Diagnosis Chronic Pelvic Pain 2. S/P Endometrial Ablation Discharge Diagnosis Chronic Pelvic Pain 2. S/P Endometrial Ablation 3. Pelvic Adhesions Reason Hospital Visit Ms. Wolf was admitted for scheduled surgery, Total Abdominal Hysterectomy with Bilateral Salpingo-oophorectomy secondary to severe pelvic pain after having an Endometrial Ablation. Discharge Summary Hospital Course Was the Problem List Reviewed?: Yes Hospital Course Ms. Wolf was admitted for a scheduled Total Abdominal Hysterectomy with Bilateral Salpingo-oophorectomy secondary to Chronic Pelvic Pain. The surgery was performed without complications. Postoperatively, she was placed on IV pain medications and other comfort care measures were instituted. She did well. Postoperative Day #1, she was given medications to increase her bowel function and started on oral pain medication. Once she had a bowel movement, she was given a Regular Diet. She was ambulating, voiding, and controlling her pain with oral medication. She states that she is ready to go home. Her vital signs remained stable throughout her hospitalization. She was discharged with prescriptions, instructions and a follow up appointment. Procedures None. Discharge Physical Examination Allergies: Uncoded Allergies: STEROIDS (Allergy, Unknown, 09/10/17) Vitals & I&Os Vital Signs Date Time Temp Pulse Resp B/P (MAP) Pulse Ox O2 Delivery O2 Flow Rate FiO2 03/28/19 13:50 03/28/19 11:55 98.3 72 18 97 03/27/19 23:24 Room Air 03/27/19 14:00 3 General Appearance: Alert, Oriented X3, Cooperative, No Acute Distress HEENT: PERRLA, EOMI Respiratory: Clear to Auscultation, Normal Air Movement Cardiovascular: Regular Rate, No Murmurs Abdominal: Normal Bowel Sounds, Other (mildly tender with palpation) Extremities: No Clubbing, No Cyanosis, No Edema Skin: No Rashes Neuro: Normal Gait, Normal Speech Psych/Mental Status: Mental Status NL Discussion & Recommendations Ms. Wolf was instructed no heavy lifting (less than 20 lbs), no strenuous activities, and pelvic rest. She is to clean her incision 3 x daily. An appointment for one week. Call with problems or questions Discharge Home Medications Reviewed and agree with Discharge Medication list on patient's Discharge Instruction sheet Condition at Discharge Improved and stable Instructions to Patient/Family Please see electronic discharge instructions given to patient. Clinical Quality Measures DVT/VTE Risk/Contraindication: Risk Factor Score Per Nursin RFS Level Per Nursing on Admit: 4+=Very High OLIVIA CURRIE DO March 29, 2019 07:32
== END 2019-03-28 13:50 | disposition home or self-care (01) | DRG 983 ==
LOC: 4TH 10:20 → SURG 10:21 → WS 14:35
PROVIDERS: ADMIT Obstetrics & Gynecology; ATTEND Obstetrics & Gynecology
PROC: 0UTC0ZZ Resection of Cervix, Open Approach (ICD-10-PCS; 2019-03-27)
PROC: 0UT20ZZ Resection of Bilateral Ovaries, Open Approach (ICD-10-PCS; 2019-03-27)
PROC: 0UT70ZZ Resection of Bilateral Fallopian Tubes, Open Approach (ICD-10-PCS; 2019-03-27)
PROC: 0UT90ZZ Resection of Uterus, Open Approach (ICD-10-PCS; principal; 2019-03-27 11:37)
DX: R10.2 Pelvic and perineal pain (principal); N95.1 Menopausal and female climacteric states; F17.210 Nicotine dependence, cigarettes, uncomplicated; F41.9 Anxiety disorder, unspecified; G62.9 Polyneuropathy, unspecified; Z98.890 Other specified postprocedural states
CPT/HCPCS: 84703; 86850; 86900; 86901; 94664

== ENCOUNTER → 2019-05-15 | Outpatient (CLI) | payer MEDICARE ==
[~2019-05-15] MED LIST changes: +DOCU100C37 PO; +OXYC1TAB87 PO
--- NOTE | 2019-05-15 17:28 | Diagnostic Imaging Report ---
PROCEDURE: CT abdomen and pelvis without contrast. TECHNIQUE: Multiple contiguous axial images were obtained through the abdomen and pelvis without the use of intravenous contrast. Auto Exposure Controls were utilized during the CT exam to meet ALARA standards for radiation dose reduction. INDICATION: Severe coccyx pain since hysterectomy seven weeks ago. No known injury. CORRELATION STUDY: None. FINDINGS: Lung bases are clear. The unenhanced liver, gallbladder, spleen, pancreas, and adrenal glands appearing unremarkable. Abdominal aorta is normal in contour. Slight increased density at the renal pyramids but without definitive otherwise calcification. No obstruction. No hydronephrosis. Abdominal aorta is normal in contour. Gastrointestinal tract demonstrates no obstruction or inflammatory change. High density through the appendiceal lumen is noted. No inflammatory changes. Urinary bladder is relatively decompressed. Uterus is absent. Very slight stranding adjacent to the vaginal cuff. No pelvic fluid collection. No presacral soft tissue abnormality. The osseous structures appearing unremarkable. No definitive evidence for acute or subacute-appearing changes about the sacrum and/or coccyx. IMPRESSION: 1. Posthysterectomy changes. No abnormal pelvic fluid collection. No definitive deformity about the sacrum and/or coccyx. Dictated by: Dictated on workstation # [id number]
== END ==
LOC: RAD FS 09:15
PROVIDERS: ATTEND Obstetrics & Gynecology
DX: M53.3 Sacrococcygeal disorders, not elsewhere classified (principal); Z90.710 Acquired absence of both cervix and uterus
CPT/HCPCS: 74176

== ENCOUNTER → 2019-05-30 | Outpatient (CLI) | payer MEDICARE, MEDICAID ==
--- NOTE | 2019-05-30 14:53 | Diagnostic Imaging Report ---
PROCEDURE: MRI pelvis without contrast. TECHNIQUE: Multiplanar, multisequence MRI of the pelvis was performed without contrast. INDICATION: Tailbone pain following hysterectomy. FINDINGS: There are no prior MRI pelvis examinations available for comparison. The CT abdomen/pelvis exam of 05/15/2019 noted postsurgical changes consistent with hysterectomy. There is no acute abnormality identified, however. On the T1 sagittal series, there is generalized increased signal within the fifth sacral segment and the coccyx. There are corresponding areas of diminished signal on the T2 fat-saturated sagittal series. These signal changes are different from the other visualized osseous structure. The precise etiology of this discrepancy is not certain but there is no distortion of the fat in this area to suggest an inflammatory/infectious process. There is no evidence for neoplastic disease. There is a small amount of fluid about the cervical remnant. There is no mass or abscess evident in this area. No other abnormality is identified. IMPRESSION: 1. There is altered signal in the fifth sacral segment and the coccyx but there is no evidence for bone edema or fracture. 2. There is a small amount of fluid about the cervical remnant. There is no acute abnormality of the pelvis noted, otherwise. Dictated by: Dictated on workstation # [id number]
== END ==
LOC: RAD 12:18
PROVIDERS: ATTEND Nurse Practitioner Community Health
DX: G89.18 Other acute postprocedural pain (principal); M53.3 Sacrococcygeal disorders, not elsewhere classified; R93.7 Abnormal findings on diagnostic imaging of other parts of musculoskeletal system; Z90.710 Acquired absence of both cervix and uterus
CPT/HCPCS: 72195

== ENCOUNTER 2019-06-27 13:27 | Emergency (ER) | payer OTHER, MEDICARE, MEDICAID ==
[~2019-06-27] VITALS: Ht 165.1 cm; Wt 81.6 kg
--- NOTE | 2019-06-27 13:48 | NUR ---
c-collar applied at triage.
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
[2019-06-27 14:55] VITALS: BP 113/64
== END 2019-06-27 14:55 | disposition home or self-care (01) ==
LOC: ER 13:27 → EDUNIT# 13:27 → ER 14:55
DX: M54.2 Cervicalgia (principal); M54.6 Pain in thoracic spine; G62.9 Polyneuropathy, unspecified; F41.9 Anxiety disorder, unspecified; F17.210 Nicotine dependence, cigarettes, uncomplicated; R40.2142 Coma scale, eyes open, spontaneous, at arrival to emergency department; R40.2252 Coma scale, best verbal response, oriented, at arrival to emergency department; R40.2362 Coma scale, best motor response, obeys commands, at arrival to emergency department; Z90.710 Acquired absence of both cervix and uterus; Z88.8 Allergy status to other drugs, medicaments and biological substances; Z80.8 Family history of malignant neoplasm of other organs or systems; V43.52XA Car driver injured in collision with other type car in traffic accident, initial encounter
CPT/HCPCS: 72125; 72128; 73630

== ENCOUNTER 2019-09-10 09:06 | Emergency (ER) | payer MEDICARE, MEDICAID ==
[~2019-09-10] VITALS: Ht 165.1 cm; Wt 77.3 kg
[2019-09-10] MEDS ORDERED: FLUC150T2 (09:43)
[2019-09-10] MEDS ORDERED: CIPR250T3 (09:43)
[2019-09-10] MEDS ORDERED: ESTR1TAB24 (09:43)
--- NOTE | 2019-09-10 09:44 | ED GU-Female ---
General Chief Complaint: - Urinary Stated Complaint: "UTI" Nursing Triage Note: Patient reports being treated for UTI for 2 weeks. patient states she is on her 3rd antibiotic and is still having dysuria, itching and urgency. Nursing Sepsis Screen: No Definite Risk Source: patient Exam Limitations: no limitations History of Present Illness Date Seen by Provider: Sep 10, 2019 Time Seen by Provider: 09:42 Initial Comments This 39-year-old white female presents with a complaint of persistent dysuria despite 3 rounds of antibiotics (sulfa, Cipro, Macrobid). The patient stated sex approximately 3 weeks ago after which her symptoms began. The patient is having vaginal itching and discharge currently. Dr. Wong performed a hysterectomy on the patient in March of this year. Allergies and Home Medications Allergies Uncoded Allergies: STEROIDS (Allergy, Unknown, 09/10/17) Home Medications Alprazolam 1 Mg Tablet, 1.5 MG PO HS, (Reported) take 1 1/2 of 1mg tab for 1.5mg total, prescribed TID prn but pt takes 1.5 tab at hs Escitalopram Oxalate 20 Mg Tablet, 20 MG PO HS, (Reported) Patient Home Medication List Home Medication List Reviewed: Yes Review of Systems Review of Systems Constitutional: No chills EENTM: No ear pain Respiratory: No cough Cardiovascular: no symptoms reported Genitourinary: see HPI, discharge, dysuria, frequency Musculoskeletal: no symptoms reported Skin: no symptoms reported Psychiatric/Neurological: No Symptoms Reported Endocrine: No Symptoms Reported Hematologic/Lymphatic: No Symptoms Reported Past Wtyhiau-Rvjeqc-Oxmuyn Hx Past Med/Social Hx: Reviewed Nursing Past Med/Soc Hx Patient Social History Alcohol Use: Denies Use Recreational Drug Use: No Type Used: Cigarettes Former Smoker, Quit: March 27, 2019 Recent Foreign Travel: No Contact w/Someone Who Travel: No Recent Infectious Disease Expo: No Recent Hopitalizations: No Physical Abuse: No Sexual Abuse: No Mistreated: No Fear: No Seasonal Allergies Seasonal Allergies: Yes Past Medical History Surgeries: Yes (rt shoulder, right knee, uterine ablation) Section Respiratory: No Cardiac: No 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 0.0oz. 81.448060ob; 28.00 BMI Method:Stated General Appearance: WD/WN, mild distress HEENT: normal ENT inspection Neck: normal inspection Cardiovascular: regular rate, rhythm Respiratory: no respiratory distress Gastrointestinal: non tender, soft Extremities: normal range of motion, normal inspection Neurologic/Psychiatric: no motor/sensory deficits, alert Skin: normal color, warm/dry Progress/Results/Core Measures Suspected Sepsis Recent Fever Within 48 Hours: No Infection Criteria Present: None New/Unexplained Altered Menta: No Sepsis Screen: No Definite Risk SIRS Temperature: Pulse: 89 Respiratory Rate: 18 Laboratory Tests 09/10/19 11:00: White Blood Count 6.5 Blood Pressure 97 /55 Mean: 69 Laboratory Tests 09/10/19 11:00: Creatinine 0.98, Platelet Count 171, Total Bilirubin 0.5 Results/Orders Lab Results Laboratory Tests Test 09/10/19 09:35 09/10/19 11:00 Range/Units Urine Color ORANGE Urine Clarity CLEAR Urine pH 5 5-9 Urine Specific [place] 1.025 H 1.016-1.022 Urine Protein 3+ H NEGATIVE Urine Glucose (UA) NEGATIVE NEGATIVE Urine Ketones NEGATIVE NEGATIVE Urine Nitrite POSITIVE H NEGATIVE Urine Bilirubin 3+ H NEGATIVE Urine Urobilinogen 12 H NORMAL MG/DL Urine Leukocyte Esterase NEGATIVE NEGATIVE Urine RBC (Auto) 4+ H NEGATIVE Urine RBC 25-50 H /HPF Urine WBC 2-5 /HPF Urine Squamous Epithelial Cells 5-10 /HPF Urine Crystals NONE /LPF Urine Bacteria TRACE /HPF Urine Casts NONE /LPF Urine Mucus NEGATIVE /LPF Urine Culture Indicated YES White Blood Count 6.5 4.3-11.0 10^3/uL Red Blood Count 4.55 4.35-5.85 10^6/uL Hemoglobin 13.3 11.5-16.0 G/DL Hematocrit 41 35-52 % Mean Corpuscular Volume 90 80-99 FL Mean Corpuscular Hemoglobin 29 25-34 PG Mean Corpuscular Hemoglobin Concent 33 32-36 G/DL Red Cell Distribution Width 14.3 10.0-14.5 % Platelet Count 171 130-400 10^3/uL Mean Platelet Volume 9.7 7.4-10.4 FL Neutrophils (%) (Auto) 50 42-75 % Lymphocytes (%) (Auto) 30 12-44 % Monocytes (%) (Auto) 14 H 0-12 % Eosinophils (%) (Auto) 6 0-10 % Basophils (%) (Auto) 1 0-10 % Neutrophils # (Auto) 3.2 1.8-7.8 X 10^3 Lymphocytes # (Auto) 2.0 1.0-4.0 X 10^3 Monocytes # (Auto) 0.9 0.0-1.0 X 10^3 Eosinophils # (Auto) 0.4 H 0.0-0.3 10^3/uL Basophils # (Auto) 0.0 0.0-0.1 10^3/uL Sodium Level 138 135-145 MMOL/L Potassium Level 3.8 3.6-5.0 MMOL/L Chloride Level 107 98-107 MMOL/L Carbon Dioxide Level 21 21-32 MMOL/L Anion Gap 10 5-14 MMOL/L Blood Urea Nitrogen 14 7-18 MG/DL Creatinine 0.98 0.60-1.30 MG/DL Estimat Glomerular Filtration Rate > 60 BUN/Creatinine Ratio 14 Glucose Level 91 70-105 MG/DL Calcium Level 8.7 8.5-10.1 MG/DL Corrected Calcium 8.9 8.5-10.1 MG/DL Total Bilirubin 0.5 0.1-1.0 MG/DL Aspartate Amino Transf (AST/SGOT) 28 5-34 U/L Alanine Aminotransferase (ALT/SGPT) 32 0-55 U/L Alkaline Phosphatase 64 40-136 U/L Total Protein 7.0 6.4-8.2 GM/DL Albumin 3.7 3.2-4.5 GM/DL Lipase 18 8-78 U/L My Orders Orders - BOOGIE ESPINOZA MD Ua Culture If Indicated (09/10/19 09:40) Urine Culture (09/10/19 09:35) Cbc With Automated Diff (09/10/19 10:28) Comprehensive Metabolic Panel (09/10/19 10:28) Lipase (09/10/19 10:28) Manual Differential (09/10/19 11:00) Rocephin 1 Gm Iv (1x Dose) (09/10/19 11:45) Tramadol Tablet (Ultram Tablet) (09/10/19 11:45) Vital Signs/I&O 09/10/19 09:35 Temp 36.4 Pulse 89 Resp 18 B/P (MAP) 97/55 (69) Pulse Ox 96 Capillary Refill : Less Than 3 Seconds Blood Pressure Mean: 69 POS Progress Note : Time: 11:36 Progress Note The patient's pelvic exam demonstrated moderate amount of white discharge. Cultures were obtained. The patient's urinalysis was consistent with significant UTI. Telephone consultation was undertaken with Dr. Wong. Treatment course of 1 g Rocephin IV with Omnicef 300 mg twice a day was initiated. Patient received Ultram for pain. She was asked call Dr. Wong office tomorrow morning for follow-up with him on Wednesday. Departure Impression Primary Impression: Urinary tract infection Qualified Codes: N30.00 - Acute cystitis without hematuria Disposition: HOME, SELF-CARE Condition: Improved Departure-Patient Inst. Decision time for Depature: 11:41 Referrals: [facility] (PCP) Primary Care Physician AMBER ESPINOSA (Family) Primary Care Physician OLIVIA WONG DO Patient Instructions: Urinary Tract Infection, Adult (DC) Add. Discharge Instructions: Omnicef and Ultram as prescribed. Call Dr. Wong office in the morning for a Wednesday appointment. Return if any problems or questions. All discharge instructions reviewed with patient and/or family. Voiced understanding. Scripts Tramadol HCl (Ultram) 50 Mg Tablet 50 MG PO Q4H PRN for PAIN-MODERATE, #20 TAB Prov: BOOGIE ESPINOZA MD 09/10/19 Cefdinir (Cefdinir) 300 Mg Capsule 300 MG PO BID for 7 Days, CAP Prov: BOOGIE ESPINOZA MD 09/10/19 BOOGIE ESPINOZA MD Sep 10, 2019 09:44 POS
[2019-09-10 09:57] LABS: CLARITY,URINE CLEAR; GLUCOSE, URINE (UA) NEGATIVE (NEGATIVE); KETONES,URINE NEGATIVE (NEGATIVE); LEUKOCYTE ESTERASE ,URINE NEGATIVE (NEGATIVE); NITRITE,URINE POSITIVE (NEGATIVE); PH,URINE 5 (5-9); PROTEIN,URINE 3+ (NEGATIVE)
[2019-09-10 10:05] LABS: BILIRUBIN,URINE 3+ (NEGATIVE)
[2019-09-10 10:06] LABS: BACTERIA,URINE TRACE /HPF; COLOR,URINE ORANGE; RBC,URINE 25-50 /HPF
[2019-09-10 11:11] LABS: BASOPHILS % (AUTO) 1 % (0-10); EOSINOPHILS # (AUTO) 0.4 10^3/uL (0.0-0.3); EOSINOPHILS % (AUTO) 6 % (0-10); HEMATOCRIT 41 % (35-52); HEMOGLOBIN 13.3 G/DL (11.5-16.0); LYMPHOCYTES % (AUTO) 30 % (12-44); MEAN CORPUSCULAR HEMOGLOBIN 29 PG (25-34); MEAN CORPUSCULAR HGB CONC 33 G/DL (32-36); MEAN CORPUSCULAR VOLUME 90 FL (80-99); MEAN PLATELET VOLUME 9.7 FL (7.4-10.4); MONOCYTES # (AUTO) 0.9 X 10^3 (0.0-1.0); MONOCYTES % (AUTO) 14 % (0-12); NEUTROPHILS # (AUTO) 3.2 X 10^3 (1.8-7.8); NEUTROPHILS % (AUTO) 50 % (42-75); PLATELET COUNT 171 10^3/uL (130-400); RED CELL DISTRIBUTION WIDTH 14.3 % (10.0-14.5); WHITE BLOOD COUNT 6.5 10^3/uL (4.3-11.0)
[2019-09-10 11:30] LABS: ALANINE AMINOTRANSFERASE 32 U/L (0-55); ALBUMIN 3.7 GM/DL (3.2-4.5); ALKALINE PHOSPHATASE 64 U/L (40-136); BILIRUBIN,TOTAL 0.5 MG/DL (0.1-1.0); BUN/CREATININE RATIO 14; CALCIUM 8.7 MG/DL (8.5-10.1); CARBON DIOXIDE 21 MMOL/L (21-32); CHLORIDE 107 MMOL/L (98-107); CREATININE SERUM 0.98 MG/DL (0.60-1.30); GFR ESTIMATED > 60; GLUCOSE 91 MG/DL (70-105); LIPASE 18 U/L (8-78); POTASSIUM 3.8 MMOL/L (3.6-5.0); SODIUM 138 MMOL/L (135-145)
[2019-09-10 11:43] LABS: BAND NEUTROPHILS 2 %; BASOPHILS % (MANUAL) 0 %; EOSINOPHILS % (MANUAL) 6 %; LYMPHOCYTES % (MANUAL) 37 %; MONOCYTES % (MANUAL) 6 %; NEUTROPHILS % (MANUAL) 46 %; RBC MORPH NORMAL; REACTIVE LYMPHOCYTES 3 %
[2019-09-10] MEDS ORDERED: cefTRIAXone FOR IV USE 1,000 MG in WATER (STERILE) FOR INJECTION 10 ML IV ONE (11:45)
[2019-09-10] MEDS ORDERED: TRAM-42 PO (11:47)
[2019-09-10] MEDS ORDERED: CEFD300C3 PO (11:47)
[2019-09-10 12:10] VITALS: BP 106/62
== END 2019-09-10 12:10 | disposition home or self-care (01) ==
LOC: EDUNIT# 09:06 → ER 09:07
DX: N39.0 Urinary tract infection, site not specified (principal); F41.9 Anxiety disorder, unspecified; G62.9 Polyneuropathy, unspecified; Z90.710 Acquired absence of both cervix and uterus; Z88.8 Allergy status to other drugs, medicaments and biological substances; Z77.22 Contact with and (suspected) exposure to environmental tobacco smoke (acute) (chronic); Z80.49 Family history of malignant neoplasm of other genital organs
CPT/HCPCS: 36415; 80053; 81000; 83690; 85007; 85027; 87077; 87088; 87210; 87491; 87591; 99283

== ENCOUNTER → 2020-02-05 | Outpatient (CLI) | payer MEDICARE, MEDICAID ==
[~2020-02-05] MED LIST changes: +CEFD300C3 PO; +CIPR250T3; +ESTR1TAB24; +FLUC150T2; +GADOBUTROL 7.5 MMOL/7.5 ML (GADAVIST) VIAL IV ONE; +TRAM-42 PO
--- NOTE | 2020-02-05 12:06 | Diagnostic Imaging Report ---
PROCEDURE: MR imaging of the brain with and without contrast. TECHNIQUE: Multiplanar, multisequence MR imaging of the brain was performed with and without contrast. DATE: February 05, 2020. COMPARISON: None. HISTORY: 39-year-old female, numbness. 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 FINDINGS: There is no restricted diffusion. There are no areas of abnormal intracranial susceptibility. The ventricles and CSF spaces are normal in size and configuration for patient age. There is no abnormal extra axial fluid collection. There is no acute intracranial hemorrhage. There is no mass effect or midline shift. There is no abnormal intracranial signal or enhancement. There is normal aeration of the visualized paranasal sinuses and mastoid air cells. There is no identified abnormal contrast enhancement of the optic nerves. Evaluation of the orbits on standard MRI brain protocol is unremarkable. IMPRESSION: 1. Unremarkable MRI brain without and with intravenous contrast. Dictated by: Dictated on workstation # [id number]
== END ==
LOC: RAD 08:29
PROVIDERS: ATTEND Nurse Practitioner Community Health
DX: H47.20 Unspecified optic atrophy (principal); R20.0 Anesthesia of skin
CPT/HCPCS: 70553

== ENCOUNTER 2020-10-17 13:44 | Emergency (ER) | payer MEDICARE, MEDICAID ==
[~2020-10-17] VITALS: Ht 36 cm; Wt 90.9 kg
[2020-10-17 13:44] VITALS: BP 110/75
[~2020-10-17 13:44] MED LIST changes: -GADOBUTROL 7.5 MMOL/7.5 ML (GADAVIST) VIAL IV ONE
--- NOTE | 2020-10-17 13:55 | ED Chest Pain ---
General Chief Complaint: Chest Pain Stated Complaint: CP Source: patient, EMS Exam Limitations: no limitations History of Present Illness Date Seen by Provider: Oct 17, 2020 Time Seen by Provider: 13:50 Initial Comments Patient is a 40-year-old female who presents to the emergency department today with a chief complaint of substernal chest pressure and pain radiating into her left arm. Patient states that she was seen by her primary care physician this week with a diagnosis of atrial fibrillation. Patient states that intermittently over the course of the last several months she has had "flip- flopping" of her heartbeat especially with exertion and she has had intermittent episodes of discomfort. Patient today states that the chest pressure was a squeezing and tightness. It was resolved with sublingual nitroglycerin per EMS. Patient was treated with baby aspirin prior to arrival. Patient endorses nausea and shortness of breath with her chest pain. Patient has no history of hypertension or hypercholesterolemia that she is aware of. She does have a significant family history of early coronary artery disease in a maternal grandmother who had a heart attack in her mid 30s as well as a cousin who had bypass in her 30s. Patient states that she was called today and told that her cardiac enzymes were elevated from clinic. Patient quit smoking 2 months ago. She has had a hysterectomy. She denies any recent illnesses such as fevers, chills, cough, congestion. No G I or complaints. No recent sick contacts. All other review of systems reviewed and negative except as stated above. 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 DESIGN ENGINEER: Yes Associated Symptoms: diaphoresis, nausea/vomiting, shortness of breath Allergies and Home Medications Allergies Uncoded Allergies: STEROIDS (Allergy, Unknown, 09/10/17) Home Medications Alprazolam 1 Mg Tablet, 1.5 MG PO HS, (Reported) take 1 1/2 of 1mg tab for 1.5mg total, prescribed TID prn but pt takes 1.5 tab at hs Cefdinir 300 Mg Capsule, 300 MG PO BID Prescribed by: BOOGIE ESPINOZA MD on 09/10/19 1147 Escitalopram Oxalate 20 Mg Tablet, 20 MG PO HS, (Reported) Tramadol HCl 50 Mg Tablet, 50 MG PO Q4H PRN for PAIN-MODERATE Prescribed by: BOOGIE ESPINOAZ MD on 09/10/19 1147 Patient Home Medication List Home Medication List Reviewed: Yes Review of Systems Review of Systems Constitutional: no symptoms reported, see HPI EENTM: No Symptoms Reported Respiratory: No Symptoms Reported Cardiovascular: Chest Pain, Palpitations Gastrointestinal: No Symptoms Reported Genitourinary: No Symptoms Reported Musculoskeletal: no symptoms reported Skin: no symptoms reported Psychiatric/Neurological: Anxiety All Other Systems Reviewed Negative Unless Noted: Yes Past Pnkwjwk-Ljfdlt-Nidxpn Hx Patient Social History Type Used: Cigarettes Former Smoker, Quit: March 27, 2019 Recent Hopitalizations: No Seasonal Allergies Seasonal Allergies: Yes Past Medical History Surgeries: Yes (rt shoulder, right knee, uterine ablation) Section Respiratory: No Cardiac: No 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 0.0oz. 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 Norm as Tested Skin: Normal Color, Warm/Dry Progress/Results/Core Measures Results/Orders Lab Results Laboratory Tests Test 10/17/20 14:04 10/17/20 16:44 Range/Units White Blood Count 10.8 4.3-11.0 10^3/uL Red Blood Count 4.25 3.80-5.11 10^6/uL Hemoglobin 12.5 11.5-16.0 g/dL Hematocrit 39 35-52 % Mean Corpuscular Volume 91 80-99 fL Mean Corpuscular Hemoglobin 29 25-34 pg Mean Corpuscular Hemoglobin Concent 32 32-36 g/dL Red Cell Distribution Width 13.1 10.0-14.5 % Platelet Count 252 130-400 10^3/uL Mean Platelet Volume 9.8 9.0-12.2 fL Immature Granulocyte % (Auto) 0 % Neutrophils (%) (Auto) 55 42-75 % Lymphocytes (%) (Auto) 31 12-44 % Monocytes (%) (Auto) 8 0-12 % Eosinophils (%) (Auto) 5 0-10 % Basophils (%) (Auto) 1 0-10 % Neutrophils # (Auto) 5.9 1.8-7.8 10^3/uL Lymphocytes # (Auto) 3.4 1.0-4.0 10^3/uL Monocytes # (Auto) 0.9 0.0-1.0 10^3/uL Eosinophils # (Auto) 0.6 H 0.0-0.3 10^3/uL Basophils # (Auto) 0.1 0.0-0.1 10^3/uL Immature Granulocyte # (Auto) 0.0 0.0-0.1 10^3/uL Sodium Level 140 135-145 MMOL/L Potassium Level 4.0 3.6-5.0 MMOL/L Chloride Level 108 H 98-107 MMOL/L Carbon Dioxide Level 22 21-32 MMOL/L Anion Gap 10 5-14 MMOL/L Blood Urea Nitrogen 12 7-18 MG/DL Creatinine 0.87 0.60-1.30 MG/DL Estimat Glomerular Filtration Rate > 60 BUN/Creatinine Ratio 14 Glucose Level 100 70-105 MG/DL Calcium Level 8.5 8.5-10.1 MG/DL Total Creatine Kinase 69 29-168 U/L Creatine Kinase MB 0.6 <6.6 NG/ML Troponin I < 0.028 < 0.028 <0.028 NG/ML My Orders Orders - GONZALEZ VAZQUEZ MD Ed Iv/Invasive Line Start (10/17/20 13:49) Ekg Tracing (10/17/20 13:49) Chest 1 View, Ap/Pa Only (10/17/20 13:49) Cbc With Automated Diff (10/17/20 13:49) Basic Metabolic Panel (10/17/20 13:49) Creatine Kinase (10/17/20 13:49) Creatine Kinase Mb (10/17/20 13:49) Troponin I (10/17/20 13:49) Iv/Invasive Line Insertion .IV start (10/17/20 15:12) Sodium Chloride Flush (Catheter Flush Sy (10/17/20 15:15) Consent-Obtain Consent For (10/17/20 15:12) Preop Checklist (10/17/20 15:12) Echo Rest/Stress Wo (10/17/20 15:11) Albuterol Pre-Mix Nebs (Rt) (Proventil (10/17/20 16:30) Svn Small Volume Nebulizer (10/17/20 16:19) Troponin I (10/17/20 16:38) Medications Given in ED Current Medications Medications Dose Ordered Sig/Shirley Route Start Time Stop Time Status Last Admin Dose Admin Albuterol Sulfate 2.5 mg ONCE ONCE INH 10/17/20 16:30 10/17/20 16:31 DC 10/17/20 16:25 2.5 MG Vital Signs/I&O 10/17/20 13:44 Temp 36.0 Pulse 82 Resp 18 B/P (MAP) 110/75 (87) Pulse Ox 98 O2 Delivery Room Air Progress Progress Note : Time: 14:01 Progress Note 40-year-old female presents with a chief complaint of chest pain. Evaluation today includes a physical exam, EKG, chest x-ray, basic laboratory studies including CK CK-MB and troponin. Patient was told that she had "elevated cardiac enzymes" by [facility] clinic today. On review of her medical records from [facility] she had a elevated high-sensitivity CRP. It was 7.2. [address] Plunkett who agrees that the patient needs a stress echocardiogram. Would like to get this done from the emergency department. He instructs me to order this test and he will supervise the test. I have advised the patient of the plan of care, she is agreeable. At 1520 Stress Lab personnel came to collect the patient. 1616 Patient returned from Stress test. Discussed with Dr. Plunkett. He states her stress echo was beautiful, she had no evidence of ischemia. Exercised for 5-1/2 minutes. I will plan on sending the patient home with follow-up with Dr. Plunkett and her primary care physician. We will give her strict return precautions. It is certainly reassuring that her stress test is negative however there is still a small chance that she could have significant coronary disease with a normal stress test. Patient states that she is a little bit short of breath currently and has a little bit of chest tightness. We will treat this prior to discharge a breathing treatment. Initial ECG Impression Date: Oct 17, 2020 Initial ECG Impression Time: 13:43 Initial ECG Rate: 70 Initial ECG Rhythm: Normal Sinus Initial ECG Intervals: Normal Initial ECG Impression: Normal Comment Q waves in leads V2 and V3 and V4 Diagnostic Imaging Diagonstic Imaging: Xray Plain Films/CT/US/NM/MRI: chest Comments [facility] [place], [place] NAME: [facility]ICO[facility]CIDO [facility] REC#: [id number] PT STATUS: REG ER : 1980 PHYSICIAN: GONZALEZ VAZQUEZ MD ADMIT DATE: 10/17/20/ER Signed Date of Exam:10/17/20 CHEST 1 VIEW, AP/PA ONLY INDICATION: Chest heaviness and chest pain. TIME OF EXAM: 2:01 p.m. Correlation is made with prior chest from 12/09/2018. The heart size is normal. The pulmonary vascularity is unremarkable. The lungs are clear. No infiltrate, effusion or pneumothorax is detected. IMPRESSION: No acute cardiopulmonary process is detected. Dictated by: Dictated on workstation # [id number] Dict: 10/17/20 1407 Trans: 10/17/20 1508 [facility] [id number] Interpreted by: BENJA SMITH MD Electronically signed by: BENJA SMITH MD 10/17/20 1508 Departure Impression Primary Impression: Chest pain Qualified Codes: R07.1 - Chest pain on breathing Disposition: 01 HOME, SELF-CARE Condition: Stable Departure-Patient Inst. Decision time for Depature: 16:33 Referrals: [facility] (PCP) Primary Care Physician AMBER ESPINOSA (Family) Primary Care Physician Patient Instructions: Chest Pain That Is Not Caused by the Heart (DC), ECG and Stress Test Add. Discharge Instructions: Please call your primary care physician and follow-up with him. Continue a daily baby aspirin. Please come back to the emergency department if you have any worsening symptoms or new concerns. GONZALEZ VAZQUEZ MD Oct 17, 2020 13:55
--- NOTE | 2020-10-17 14:09 | Diagnostic Imaging Report ---
INDICATION: Chest heaviness and chest pain. TIME OF EXAM: 2:01 p.m. Correlation is made with prior chest from 12/09/2018. The heart size is normal. The pulmonary vascularity is unremarkable. The lungs are clear. No infiltrate, effusion or pneumothorax is detected. IMPRESSION: No acute cardiopulmonary process is detected. Dictated by: Dictated on workstation # [id number]
[2020-10-17 14:18] LABS: BASOPHILS # (AUTO) 0.1 10^3/uL (0.0-0.1); BASOPHILS % (AUTO) 1 % (0-10); EOSINOPHILS # (AUTO) 0.6 10^3/uL (0.0-0.3); EOSINOPHILS % (AUTO) 5 % (0-10); HEMATOCRIT 39 % (35-52); HEMOGLOBIN 12.5 g/dL (11.5-16.0); LYMPHOCYTES # (AUTO) 3.4 10^3/uL (1.0-4.0); LYMPHOCYTES % (AUTO) 31 % (12-44); MEAN CORPUSCULAR HEMOGLOBIN 29 pg (25-34); MEAN CORPUSCULAR HGB CONC 32 g/dL (32-36); MEAN CORPUSCULAR VOLUME 91 fL (80-99); MEAN PLATELET VOLUME 9.8 fL (9.0-12.2); MONOCYTES # (AUTO) 0.9 10^3/uL (0.0-1.0); MONOCYTES % (AUTO) 8 % (0-12); NEUTROPHILS # (AUTO) 5.9 10^3/uL (1.8-7.8); NEUTROPHILS % (AUTO) 55 % (42-75); PLATELET COUNT 252 10^3/uL (130-400); WHITE BLOOD COUNT 10.8 10^3/uL (4.3-11.0)
[2020-10-17 14:31] LABS: CHLORIDE 108 MMOL/L (98-107); SODIUM 140 MMOL/L (135-145)
[2020-10-17 14:32] LABS: CALCIUM 8.5 MG/DL (8.5-10.1); GLUCOSE 100 MG/DL (70-105)
[2020-10-17 14:34] LABS: CARBON DIOXIDE 22 MMOL/L (21-32)
[2020-10-17 14:36] LABS: CREATININE SERUM 0.87 MG/DL (0.60-1.30); GFR ESTIMATED > 60
[2020-10-17 14:37] LABS: BUN/CREATININE RATIO 14
[2020-10-17 14:38] LABS: CREATINE KINASE 69 U/L (29-168)
[2020-10-17 14:45] LABS: CREATINE KINASE MB 0.6 NG/ML (<6.6)
--- NOTE | 2020-10-17 15:10 | NUR ---
Jenifer john in [facility] - 10/17/20 at 1515 by PMCCLURE AMB TO BATHROM WITHOUT PROBLEM
[2020-10-17] MEDS ORDERED: CATHETER FLUSH 10 ML SYR INJ PRN (15:15)
--- NOTE | 2020-10-17 15:20 | NUR ---
ELAINE GOYAL HERE TO TAKE FOR STRESS TEST.
--- NOTE | 2020-10-17 16:05 | NUR ---
RETURN FROM STRESS TEST Addendum: 10/17/20 at 1638 by PMCCLURE REPORTS THAT SHE IS HAVINGV RETURN TIGHTNESS IN CHEST
[2020-10-17] MEDS ORDERED: RT-ALBUTEROL SULF 2.5 MG/3 ML PRE-MIX VIAL INH ONE (16:30)
--- NOTE | 2020-10-17 16:33 | NUR ---
AEROSOL TX GIVEN CON'T TO HAVE TIGHTNESS IN CHEST.
--- NOTE | 2020-10-17 17:01 | NUR ---
CALLED TO ROOM REPORTS FEELING LIKE HEART FLUTTERING MONITOR SR WITH RATE OF 82 B/P 107/62
--- NOTE | 2020-10-17 17:24 | NUR ---
TO ROOM CON'T T C/O CHEST TIGHTNESS MONITOR SR.
== END 2020-10-17 17:36 | disposition home or self-care (01) ==
LOC: EDUNIT# 13:44 → ER 13:46
DX: R07.89 Other chest pain (principal); F41.9 Anxiety disorder, unspecified; Z80.49 Family history of malignant neoplasm of other genital organs; Z82.49 Family history of ischemic heart disease and other diseases of the circulatory system; Z87.891 Personal history of nicotine dependence; Z88.8 Allergy status to other drugs, medicaments and biological substances
CPT/HCPCS: 36415; 71045; 80048; 82550; 82553; 84484; 85025; 93005; 93351

== ENCOUNTER → 2020-11-04 | Outpatient (CLI) | payer MEDICARE, MEDICAID | LOC: CARD 08:47 | PROVIDERS: ATTEND Internal Medicine Cardiovascular Disease | DX: R00.2 Palpitations (principal) | CPT/HCPCS: 93306 ==

== ENCOUNTER 2020-11-05 07:52 | Outpatient (RCR) | payer MEDICARE, MEDICAID ==
[~2020-11-05 07:52] MED LIST changes: +ESCI20TA39 PO; -ESCI20TA45 PO
== END 2021-02-03 | disposition home or self-care (01) ==
LOC: CARD 07:52
PROVIDERS: ATTEND Internal Medicine Cardiovascular Disease
DX: R00.2 Palpitations (principal)
CPT/HCPCS: 93225; 93226

== ENCOUNTER → 2020-11-21 | Outpatient (CLI) | payer MEDICARE, MEDICAID ==
[~2020-11-21] MED LIST changes: -ESCI20TA39 PO; +ESCI20TA45 PO
== END ==
LOC: LAB 09:53
PROVIDERS: ATTEND Internal Medicine Cardiovascular Disease
DX: R00.2 Palpitations (principal)
CPT/HCPCS: 36415; 84443

== ENCOUNTER → 2021-04-02 | Outpatient (CLI) | payer OTHER, MEDICARE, MEDICAID ==
[~2021-04-02] VITALS: Ht 165.1 cm; Wt 100.0 kg
[~2021-04-02] MED LIST changes: +ESCI20TA39 PO; -ESCI20TA45 PO; +GADOBUTROL 7.5 MMOL/7.5 ML (GADAVIST) VIAL IV ONE; +IOHEXOL 300 MG/ML 50 ML (OMNIPAQUE 300) VIAL IV ONE
--- NOTE | 2021-04-02 15:48 | Diagnostic Imaging Report ---
INDICATION: Right shoulder pain. PROCEDURE: Patient was brought to the procedure room and placed on table in the supine position. Skin over the right shoulder was prepped and draped in the usual sterile fashion. A small amount of 1% lidocaine was utilized for local anesthesia. A 22-gauge needle was advanced into the right shoulder and placed with its tip at the rotator interval. A 15 mL solution of iodinated contrast, normal saline and gadolinium was injected under fluoroscopic observation. 13 seconds of fluoroscopic time was utilized. Needle was withdrawn and hemostasis was obtained. Patient tolerated the procedure well and was sent to MRI in satisfactory condition. IMPRESSION: Successful right shoulder injection of gadolinium contrast solution, using fluoroscopy. Dictated by: Dictated on workstation # [id number]
--- NOTE | 2021-04-03 12:21 | Diagnostic Imaging Report ---
EXAMINATION: Magnetic resonance imaging of the right shoulder with intra-articular contrast. DATE: April 02, 2021. COMPARISON: Right shoulder arthrogram April 02, 2021. HISTORY: 40-year-old female, right shoulder injury. Difficulty extending the arm above the head. TECHNIQUE: Magnetic Resonance Imaging sequences were performed of the shoulder following the intra-articular administration of contrast. FINDINGS: ROTATOR CUFF, LIGAMENTS, TENDONS, AND MUSCLES: The supraspinatus, infraspinatus, teres minor, and subscapularis tendons and muscles are intact. There is normal rotator cuff muscle bulk and signal. LONG HEAD OF BICEPS: The biceps labral attachment and long head of the biceps tendon is intact. The long head of the biceps tendon is normally positioned within the bicipital groove. GLENOHUMERAL JOINT: The humeral head is well positioned relative to the glenoid. The labrum is intact. There is no identified paralabral cyst. The articular cartilage is grossly intact. There is no identified intra-articular body or prominent synovitis. ACROMIOCLAVICULAR JOINT: There is widening of the acromioclavicular joint. The coracoclavicular and coracoacromial ligaments are intact. There are no degenerative changes of the acromioclavicular joint. BONE: There is no os acromiale. There is no Hill-Sachs deformity. There is no acute fracture, bone contusion, or evidence of osteonecrosis. BURSAE AND SOFT TISSUES: The bursae and soft tissue surrounding the shoulder are unremarkable. IMPRESSION: 1. Intact rotator cuff and proximal long the biceps tendon. 2. Intact labrum and unremarkable additional glenohumeral joint assessment. 3. Widening of the acromioclavicular joint likely relating to acromioclavicular joint separation injury of uncertain exact age. The coracoclavicular and coracoacromial ligaments are intact. 4. No acute fracture, bone contusion, or other bone marrow signal abnormality. Dictated by: Dictated on workstation # [id number]
== END ==
LOC: RAD 13:41
PROVIDERS: ATTEND Nurse Practitioner Family
DX: M25.511 Pain in right shoulder (principal)
CPT/HCPCS: 23350; 73040; 73219